=== PATIENT | female | born 2000 | race Hispanic/Latino ===

== ENCOUNTER 2024-09-23 09:49 | Emergency (ER) | payer BC ==
[2024-09-23] MEDS ORDERED: LORazepam 2 MG/ML VIAL ONE (10:12)
[2024-09-23] MEDS ORDERED: KETOROLAC 30 MG/ML INJ ONE (10:14)
[2024-09-23] MEDS ORDERED: NA CHLORIDE 0.9% 1,000 ML ONE ×2 (10:14→12:12)
[2024-09-23 10:31] LABS: Absolute Basophils 0.1 K/uL (0-0.5); Absolute Lymphocytes (CBC) 2.9 K/uL (0.7-4.9); Absolute Neutrophil 13.9 K/uL (1.8-8.0); Basophils % 0.5 % (0-1.3); Hematocrit 32.2 % (36.0-45.0); Hemoglobin 10.6 g/dL (12.0-15.0); MCH 31.5 pg (27.0-35.0); MCV 95.6 fL (80-100); MPV 10.6 fL (7.6-11.3); Monocytes % 5.8 % (3.3-12.3); Neutrophils % 77.7 % (41.7-73.7); Platelets 253 thou/uL (152-406); RBC Red Blood Cell Count 3.37 M/uL (3.86-4.86)
[2024-09-23 10:48] LABS: Albumin/Globulin Ratio 1.3 (1.1-1.8); Anion Gap 13.7 mEq/L (5.0-15.0); Bilirubin Total 0.7 mg/dL (0.2-1.0); Potassium 3.7 mEq/L (3.5-5.1)
[2024-09-23 11:04] LABS: PT Prothrombin Time 14.4 SECONDS (9.4-12.5); PTT, Activated Partial Thromb 25.2 SECONDS (24.3-36.9); Protime INR 1.3
[2024-09-23 14:17] LABS: Barbiturates NEGATIVE (NEGATIVE); Benzodiazepines NEGATIVE (NEGATIVE); Cocaine NEGATIVE (NEGATIVE); METHAMPHETAM NEGATIVE (NEGATIVE); Methadone NEGATIVE (NEGATIVE); Opiates NEGATIVE (NEGATIVE); Phencyclidine NEGATIVE (NEGATIVE); THC Cannibis POSITIVE (NEGATIVE)
[2024-09-23 14:22] LABS: Specific Gravity 1.014 (1.005-1.030)
[2024-09-23 14:23] LABS: Specific Gravity 1.014 (1.005-1.030); Sqamous Epithelial <5 /HPF (None Seen); Urine Bacteria <20 /HPF (<20); Urine Bilirubin NEGATIVE (Negative); Urine Blood Negative (Negative); Urine Clarity Extremely Turbid (Clear); Urine Color Light-Yellow (Yellow); Urine Culture Reflex Order NOT NEEDED; Urine Glucose NEGATIVE (Negative); Urine Ketones NEGATIVE (Negative); Urine Microscopic Reflex YN ORDER UMIC; Urine Mucus 1+ /HPF (None Seen); Urine Nitrite NEGATIVE (Negative); Urine Protein NEGATIVE (Negative); Urine RBC <5 /HPF (None Seen); Urine Urobilinogen Normal (Normal); Urine pH 5.5 (5.0-7.0)
--- NOTE | 2024-09-23 15:00 | RAD REPORT ---
EXAM: CT CHEST, ABDOMEN AND PELVIS WITHOUT CONTRAST CLINICAL INDICATION: Female, 24 years abd pain, back pain TECHNIQUE: CT chest, abdomen and pelvis was performed, with IV contrast, as per department protocol. Axial, sagittal and coronal reconstructions were obtained. One or more of the following dose reduction techniques were used: Automated exposure control, adjustment of the mA and/or kV according to the patient size, and/or iterative reconstruction. Unless otherwise specified, incidental findings do not require dedicated imaging follow-up. [id number]. COMPARISON: No prior exam. FINDINGS: Chest: LOWER NECK/CHEST WALL: Simultaneous gas is present within the supraclavicular region and extending in to the superior mediastinum. LUNGS AND AIRWAYS: Small nonspecific pulmonary nodules which are likely benign. No pneumothorax.. PLEURA: No pleural effusion. No pneumothorax. Hemidiaphragms are normally positioned. MEDIASTINUM AND LYMPH NODES: Pneumomediastinum present with gas along the esophagus and left mainstem bronchus. Along the esophagus. The source is uncertain. THORACIC AORTA: Normal caliber and configuration. PULMONARY ARTERIES: Normal caliber. HEART: Unremarkable. Abdomen/Pelvis UPPER GI: No significant abnormality. LIVER: No significant focal abnormality. GALLBLADDER/BILE DUCTS: No biliary ductal dilatation.? PANCREAS: No mass, ductal dilation, or hien-pancreatic fluid. SPLEEN: Unremarkable. ADRENALS: No adrenal masses. KIDNEYS AND URETERS: Normal size and contour. No hydronephrosis.No suspicious renal mass. ABDOMINAL AORTA AND OTHER VESSELS: Normal caliber aorta and IVC. PERITONEUM: Large volume of hemoperitoneum. The source is uncertain. LYMPH NODES: No pathologic lymphadenopathy. ABDOMINAL WALL: No significant abnormality. SMALL BOWEL/COLON: Small bowel has normal course and caliber. No colonic wall thickening or pericolon ic inflammatory changes.Normal appendix. URINARY BLADDER: Underdistended but grossly unremarkable. REPRODUCTIVE ORGANS: No pathologic process. MUSCULOSKELETAL: No acute or suspicious osseous abnormality. ADDITIONAL FINDINGS: None. IMPRESSION: 1. Large volume of hemoperitoneum of uncertain source. Based on the distribution and relative hyperde nsity, this probably originates from the pelvis. 2. Pneumomediastinum with subcutaneous emphysema extending into the neck. This also has an uncertain source and could be either esophageal or related to an airway injury. No pneumothorax or mediastinal fluid. Conveyed to Milton Starks at 1455 on 09/23/24
--- NOTE | 2024-09-23 15:13 | ER ---
Nurse's Notes [facility] Name: Shena Mendez Age: 24 yrs Sex: Female : 2000 Arrival Date: 09/23/2024 Time: 09:49 Bed 18 Private MD: Diagnosis: Hemoperitoneum-of uncertain source, likely pelvic - traumatic;Pneumomediastinum with subcutaneous emphysema extending into the neck Presentation: 09/23 10:06 Chief complaint: Patient states: suprapubic pain that began last night after having ss intercourse. Coronavirus screen: Client denies travel out of the [place] in the last 14 days. Ebola Screen: Patient denies exposure to infectious person. Patient denies travel to an Ebola-affected area in the 21 days before illness onset. Initial Sepsis Screen: Does the patient meet any 2 criteria? No. Patient's initial sepsis screen is negative. Does the patient have a suspected source of infection? No. Patient's initial sepsis screen is negative. Risk Assessment: Do you want to hurt yourself or someone else? Patient reports no desire to harm self or others. Onset of symptoms was September 22, 2024. 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 - Infectious Disease History:: Denies. - Social history:: Smoking status: Patient denies any tobacco usage or history of. Screenin:00 [facility] ED Fall Risk Assessment (Adult) History of falling in the last 3 months, ld1 including since admission No falls in past 3 months (0 pts) Confusion or Disorientation No (0 pts) Intoxicated or Sedated No (0 pts) Impaired Gait No (0 pts) Mobility Assist Device Used No (0 pt) Altered Elimination No (0 pt) Score/Fall Risk Level 0 - 2 = Low Risk Oriented to surroundings, Maintained a safe environment, Educated pt \T\ family on fall prevention, incl call for assistance when getting out of bed, Assessed \T\ reinforced patient's understanding of fall precautions, Provided non-skid footwear, Hourly rounding (assess needs \T\ fall precautionary measures) done, Used ambulatory aids as needed (educated on \T\ assisted with), Used gait belt as appropriate. Abuse screen: Denies threats or abuse. Denies injuries from another. Nutritional screening: No deficits noted. Tuberculosis screening: No symptoms or risk factors identified. Assessment: 11:00 General: Appears in no apparent distress. uncomfortable, Behavior is anxious, crying, ld1 fussy. 11:00 Pain: Complains of pain in pelvis Pain does not radiate. Pain currently is 8 out of 10 ld1 on a pain scale. Quality of pain is described as sharp, shooting, throbbing, Pain began suddenly, Is continuous. Neuro: Level of Consciousness is awake, alert, obeys commands, Oriented to person, place, time, situation. Cardiovascular: Capillary refill < 3 seconds Patient's skin is warm and dry. Cardiovascular: Rhythm is sinus rhythm. Respiratory: Airway is patent Respiratory effort is even, unlabored, Breath sounds are clear bilaterally. GI: Abdomen is flat, non-distended. : Reports Vaginal pain post intercourse. EENT: No signs and/or symptoms were reported regarding the EENT system. Derm: No signs and/or symptoms reported regarding the dermatologic system. Musculoskeletal: No signs and/or symptoms reported regarding the musculoskeletal system. 12:50 Reassessment: Patient appears in no apparent distress at this time. No changes from ld1 previously documented assessment. Patient and/or family updated on plan of care and expected duration. Pain level reassessed. Patient states symptoms have not improved. 14:00 Reassessment: Patient appears in no apparent distress at this time. No changes from ld1 previously documented assessment. Patient and/or family updated on plan of care and expected duration. Pain level reassessed. Reports pain free unless moving. Patient states symptoms have not improved. 15:50 Reassessment: Patient appears in no apparent distress at this time. No changes from ld1 previously documented assessment. Patient and/or family updated on plan of care and expected duration. Pain level reassessed. C/O pelvic pain. Notified ERP. See MAR for orders. Patient states symptoms have not improved. Vital Signs: 10:06 BP 137 / 90; Pulse 123; Resp 24; Temp 98.3(O); Pulse Ox 100% on R/A; Height 5 ft. 5 in. ss ; Pain 10/10; 11:00 BP 142 / 86; Pulse 116; Resp 20; Pulse Ox 100% on R/A; ld1 13:33 BP 119 / 67; Pulse 102; Resp 18; Pulse Ox 100% on R/A; ld1 15:07 BP 138 / 74; Pulse 112; Resp 18; Pulse Ox 100% on R/A; ld1 16:13 BP 124 / 80; Pulse 114; Resp 19; Pulse Ox 100% on R/A; ld1 10:06 Pain Scale: Adult ED Course: 09:51 Patient arrived in ED. mr 09:51 Hanna Starks PA-C is PHCP. sb4 09:51 Devan Nicholson MD is Attending Physician. sb4 10:08 Triage completed. ss 10:08 Arm band placed on right wrist. ss 10:11 Renetta Berman, MEG is Primary Nurse. ld1 10:25 CBC with Diff Sent. em1 10:25 CMP Sent. em1 10:25 Lipase Sent. em1 10:25 Initial lab(s) drawn, by in, sent to lab. Inserted saline lock: 20 gauge in left em1 antecubital area, using aseptic technique. Blood collected. Flushed with 10 mL NS. 10:50 Blood Culture Adult (2) Sent. ld1 10:50 Lactate w/ 2H reflex if indic. Sent. ld1 10:50 Protime (+inr) Sent. ld1 10:50 Ptt, Activated Sent. ld1 11:00 Patient has correct armband on for positive identification. Placed in gown. Bed in low ld1 position. Call light in reach. Side rails up X2. monitoring and evaluation advisor on. Pulse ox on. NIBP on. Door closed. Noise minimized. Warm blanket given. 11:01 Radiology exam delayed due to test not completed at this time. ls3 11:52 Radiology exam delayed due to test not completed at this time. mw3 13:00 Radiology exam delayed due to test not completed at this time. ls3 13:46 UDS Sent. ld1 13:47 Lactate w/ 2H reflex if indic. Sent. ld1 14:36 CT Chest, Abdomen, Pelvis - W/Contrast In Process Unspecified. EDMS 15:55 attempted to initiate a transfer with the [facility] and placed eb on an automatic hold for forty one minutes. 15:57 initiated a transfer with [place] with the [facility] transfer center. eb 16:05 connected the Trauma team sr. consultant for [facility] with Dr. Nicholson for patient eb transfer consultation. 16:09 administrative approval given by Dominique Ortiz / patient has been accepted to [facility] ED/ Barb Bettencourt has accepted the patient in transfer/ report to be called to [phone]. 17:36 No provider procedures requiring assistance completed. Patient transferred, IV remains ld1 in place. Administered Medications: 10:49 Drug: Ativan IVP 1 mg IVP once Route: IVP; Site: left antecubital; ld1 11:30 Follow up: Response: No adverse reaction ld1 10:50 Drug: TORadol - Ketorolac IVP 15 mg IVP once Route: IVP; Site: left antecubital; ld1 13:46 Follow up: Response: No adverse reaction ld1 10:50 Drug: NS 0.9% IV 1000 ml IV at 1 bolus Per protocol; to be given as a bolus over 60 ld1 minutes Route: IV; Rate: 1 bolus; Site: left antecubital; 12:22 Drug: NS 0.9% IV 1000 ml IV at 1 bolus Per protocol; to be given as a bolus over 60 ld1 minutes Route: IV; Rate: 1 bolus; Site: left antecubital; 13:46 Follow up: Response: No adverse reaction; IV Status: Completed infusion; IV Intake: ld1 1000ml 15:41 Drug: fentaNYL (PF) IVP 50 mcg IVP once Route: IVP; Site: left antecubital; ld1 16:01 Drug: Piperacillin-Tazobactam IVPB 3.375 grams IVPB once over 60 mins; (mix in NS 100 ld1 mL) Route: IVPB; Infused Over: 60 mins; Site: left antecubital; 17:31 Drug: morphine IVP or IV 4 mg IVP once over 4 mins Route: IVP; Infused Over: 4 mins; ld1 Site: left antecubital; 17:31 Drug: Ondansetron IVP 4 mg IVP once; over 2 minutes Route: IVP; Site: left antecubital; ld1 Medication: 11:00 VIS not applicable for this client. ld1 Intake: 13:46 IV: 1000ml; Total: 1000ml. ld1 Outcome: 15:13 ER care complete, transfer ordered by . sb4 17:36 Transferred by ground EMS to [facility], ld1 17:36 Condition: stable 17:36 Instructed on the need for transfer, 17:37 Patient left the ED. ld1 Signatures: Dispatcher [employer] EDMS Mony Saenz, Reg Reg mr RichardsDerrell em1 Kathia Villegas, RN RN ss Moon Hernandez Michelle mw3 Norma Panchal ls3 Renetta Berman RN RN ld1 Hanna Starks, PA-C PAJenna sb4
--- NOTE | 2024-09-23 15:13 | EDPHYS ---
Physician Documentation [facility] Name: Shena Mendez Age: 24 yrs Sex: Female : 2000 Arrival Date: 09/23/2024 Time: 09:49 Bed 18 Private MD: ED Physician Devan Nicholson HPI: 09/23 10:05 This 24 yrs old Female presents to ER via Unassigned with complaints of sb4 Shortness Of Breath, Abdominal Pain, Back Pain, Pelvic Pain. 10:16 patient presents in mild distress with complaints of abdominal pain, back pain, and sb4 shortness of breath. she states that everything began last night in the middle of sexual intercourse. believes she may have a cyst in her vagina because she can feel something. she also reports some difficulty urinating. no blood in her urine, no abnormal vaginal discharge, no nausea, or vomiting/. 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 - Infectious Disease History:: Denies. - Social history:: Smoking status: Patient denies any tobacco usage or history of. ROS: 10:16 Constitutional: Negative for fever, chills, and weight loss, sb4 10:16 Respiratory: Positive for shortness of breath, 10:18 Abdomen/GI: Positive for abdominal pain, sb4 10:18 : Positive for urinary symptoms, pelvic pain, difficulty urinating, 10:18 All other systems are negative, Exam: 10:18 Head/Face: Normocephalic, atraumatic. Eyes: Extra-ocular motions intact. Periorbital sb4 areas with no swelling, redness, or edema. ENT: Mucous membranes moist. Abdomen/GI: Soft, non-tender, no distension. Skin: Warm, dry with normal turgor. Normal color with no rashes, no lesions, and no evidence of cellulitis. 10:18 Constitutional: The patient appears alert, awake, anxious, in obvious distress, mildly distressed, uncomfortable, 10:18 Cardiovascular: Rate: tachycardic, Rhythm: regular, 10:18 Respiratory: the patient does not display signs of respiratory distress, Respirations: shallow respirations, that is mild, tachypnea, Breath sounds: are clear throughout, Vital Signs: 10:06 BP 137 / 90; Pulse 123; Resp 24; Temp 98.3(O); Pulse Ox 100% on R/A; Height 5 ft. 5 in. ss ; Pain 10/10; 11:00 BP 142 / 86; Pulse 116; Resp 20; Pulse Ox 100% on R/A; ld1 13:33 BP 119 / 67; Pulse 102; Resp 18; Pulse Ox 100% on R/A; ld1 15:07 BP 138 / 74; Pulse 112; Resp 18; Pulse Ox 100% on R/A; ld1 16:13 BP 124 / 80; Pulse 114; Resp 19; Pulse Ox 100% on R/A; ld1 10:06 Pain Scale: Adult ss MDM: 09:57 Medical Screening Exam initiated sb4 15:21 Data reviewed: vital signs, nurses notes, lab test result(s), radiologic studies, I sb4 have discussed the patient's presentation/case with the attending Emergency Department Physician;. Counseling: I had a detailed discussion with the patient and/or guardian regarding the historical points, exam findings, and any diagnostic results supporting the discharge/admit diagnosis, lab results, radiology results, the need to transfer to another facility, for higher level of care, [facility] does not immediately have the required specialist. 09/23 10:05 Order name: CBC with Diff; Complete Time: 10:44 4 09/23 10:05 Order name: CMP; Complete Time: 10:49 sb4 09/23 10:05 Order name: Lipase; Complete Time: 10:49 4 09/23 10:05 Order name: Test, Urine; Complete Time: 14:26 4 09/23 10:05 Order name: Urinalysis w/ reflexes; Complete Time: 14:26 4 09/23 10:10 Order name: Blood Culture Adult (2) 4 09/23 10:10 Order name: Lactate w/ 2H reflex if indic.; Complete Time: 11:21 4 09/23 10:10 Order name: Protime (+inr); Complete Time: 11:05 4 09/23 10:10 Order name: Ptt, Activated; Complete Time: 11:05 sb4 09/23 11:23 Order name: Ghost Lactate-NO COLLECT Timer; Complete Time: 13:20 EDMS 09/23 11:51 Order name: UDS; Complete Time: 14:19 sb4 09/23 13:21 Order name: Lactate w/ 2H reflex if indic.; Complete Time: 14:31 sb4 09/23 10:06 Order name: CT Chest, Abdomen, Pelvis - W/Contrast; Complete Time: 15:01 sb4 09/23 10:05 Order name: IV Saline Lock; Complete Time: 10:25 sb4 09/23 10:05 Order name: Labs collected and sent; Complete Time: 10:25 sb4 09/23 10:05 Order name: Pelvic Exam Setup; Complete Time: 10:30 sb4 Administered Medications: 10:49 Drug: Ativan IVP 1 mg IVP once Route: IVP; Site: left antecubital; ld1 11:30 Follow up: Response: No adverse reaction ld1 10:50 Drug: TORadol - Ketorolac IVP 15 mg IVP once Route: IVP; Site: left antecubital; ld1 13:46 Follow up: Response: No adverse reaction ld1 10:50 Drug: NS 0.9% IV 1000 ml IV at 1 bolus Per protocol; to be given as a bolus over 60 ld1 minutes Route: IV; Rate: 1 bolus; Site: left antecubital; 12:22 Drug: NS 0.9% IV 1000 ml IV at 1 bolus Per protocol; to be given as a bolus over 60 ld1 minutes Route: IV; Rate: 1 bolus; Site: left antecubital; 13:46 Follow up: Response: No adverse reaction; IV Status: Completed infusion; IV Intake: ld1 1000ml 15:41 Drug: fentaNYL (PF) IVP 50 mcg IVP once Route: IVP; Site: left antecubital; ld1 16:01 Drug: Piperacillin-Tazobactam IVPB 3.375 grams IVPB once over 60 mins; (mix in NS 100 ld1 mL) Route: IVPB; Infused Over: 60 mins; Site: left antecubital; 17:31 Drug: morphine IVP or IV 4 mg IVP once over 4 mins Route: IVP; Infused Over: 4 mins; ld1 Site: left antecubital; 17:31 Drug: Ondansetron IVP 4 mg IVP once; over 2 minutes Route: IVP; Site: left antecubital; ld1 Disposition: 21:27 Co-signature as Attending Physician, Devan Nicholson MD I agree with the assessment and cornelius plan of care. Disposition Summary: 09/23/24 15:13 Transfer Ordered Notes: Reason: Higher level of care sb4 Condition: Serious sb4 Problem: new sb4 Symptoms: are unchanged sb4 Transfer Location: [email or web address]System(09/23/24 16:11) sb4 Accepting Physician: trauma(09/23/24 17:37) ld1 Diagnosis - Hemoperitoneum - of uncertain source, likely pelvic - traumatic sb4 - Pneumomediastinum with subcutaneous emphysema extending into the neck sb4 Forms: - Medication Reconciliation Form sb4 - SBAR form sb4 Signatures: Dispatcher [employer] EDDevan Greenberg MD MD cha Blanchard, Shelby, RN RN ss Sims, Lauren, RN RN ld1 Hanna Starks PA-C PA-C sb4 Corrections: (The following items were deleted from the chart) 10:06 10:06 Chest Abdomen Pelvis W Con+CT.RAD.BRZ ordered. EDMS EDMS 10:10 10:10 BLOOD CULTURE*+BA.LAB.BRZ ordered. EDMS EDMS 10:11 10:10 LACTATE+C.LAB.BRZ ordered. EDMS EDMS 10:11 10:10 PROTIME (+INR)+COAG.LAB.BRZ ordered. EDMS EDMS 10:11 10:10 PTT, ACTIVATED+COAG.LAB.BRZ ordered. EDMS EDMS 10:18 10:16 Respiratory: Positive for shortness of breath, sb4 sb4 14:35 10:18 Head Brain Wo Cont+CT.RAD.BRZ ordered. EDMS EDMS 15:22 10:16 patient presents in mild distress with complaints of abdominal pain, back pain, sb4 and shortness of breath. she believes she may have a cyst in her vagina because she can feel something. she also reports some difficulty urinating. no blood in her urine, no abnormal vaginal discharge, no nausea, or vomiting. sb4 16:11 15:13 trauma sb4 sb4 16:11 15:13 [facility] sb4 sb4 17:37 16:11 trauma sb4 ld1
[2024-09-23] MEDS ORDERED: FENTANYL CITR 100 MCG/2 ML ONE (15:30)
[2024-09-23] MEDS ORDERED: PIPERACIL/TAZO 3.375 GM VIAL IV ONE (15:46)
[2024-09-23] MEDS ORDERED: NA CHLORIDE 0.9% 100 ML ONE (15:46)
[2024-09-23] MEDS ORDERED: MORPHINE 4 MG/ML SYR ONE (17:18)
[2024-09-23] MEDS ORDERED: ONDANSETRON 4 MG/2 ML VIAL ONE (17:18)
[2024-09-23 18:26] VITALS: TEMP 98.3; O2SAT 100
[2024-09-23 18:30] VITALS: BP 124/80
== END 2024-09-23 17:37 | disposition short-term general hospital (02) ==
LOC: ER 09:49
DX: K66.1 Hemoperitoneum (principal); J98.2 Interstitial emphysema
CPT/HCPCS: 96361; 87040 ×2; 85025; 81001; 36415; 81025; 85610; 83605 ×2; 85730; 83690; 80053; 80307; 71260; 74177; 96375; 96374; 99285; Q9967; J2543; J3010; J2405; J7030 ×2